=== PATIENT | female | born 1985 | race Caucasian/White ===

== ENCOUNTER → 2016-10-13 | Outpatient (REF) | payer BC ==
[2016-10-13 17:15] LABS: VITAMIN B12 LEVEL 581 PG/ML (247-911)
[2016-10-13 17:19] LABS: ALBUMIN 4.3 GM/DL (3.2-5.2); ALBUMIN/GLOBULIN RATIO 1.34 (1.00-1.93); ALKALINE PHOSPHATASE 55 U/L (45-117); ALT/SGPT 20 U/L (12-78); ANION GAP 7 MEQ/L (8-16); AST/SGOT 11 U/L (15-37); BILIRUBIN,TOTAL 0.5 MG/DL (0.2-1.0); BLOOD UREA NITROGEN 6 MG/DL (7-18); CALCIUM LEVEL 9.2 MG/DL (8.5-10.1); CARBON DIOXIDE LEVEL 29 MEQ/L (21-32); CHLORIDE LEVEL 105 MEQ/L (98-107); CHOLESTEROL LEVEL 187 MG/DL (<200); CREATININE FOR GFR 0.76 MG/DL (0.55-1.02); FERRITIN 21 NG/ML (8-252); FREE T4 1.13 NG/DL (0.76-1.46); GLOMERULAR FILTRATION RATE > 60.0 (>60); GLUCOSE, FASTING 86 MG/DL (70-105); POTASSIUM SERUM 4.9 MEQ/L (3.5-5.1); SODIUM LEVEL 141 MEQ/L (136-145); TOTAL PROTEIN 7.5 GM/DL (6.4-8.2); TRIGLYCERIDES LEVEL 71 MG/DL (<150)
[2016-10-13 17:51] LABS: MEAN CORPUSCULAR HEMOGLOBIN 31.8 pg (27.0-33.0); MEAN CORPUSCULAR HGB CONC 34.1 g/dl (32.0-36.5); MEAN CORPUSCULAR VOLUME 93.2 fl (80.0-96.0); RED CELL DISTRIBUTION WIDTH 11.9 % (11.5-14.5); WHITE BLOOD COUNT 3.4 K/mm3 (4.0-10.0)
== END ==
LOC: M SFHCCLAY 11:03
PROVIDERS: ATTEND Family Medicine
DX: R53.83 Other fatigue (principal); Z00.00 Encounter for general adult medical examination without abnormal findings

== ENCOUNTER → 2017-09-27 | Outpatient (REF) | payer BC ==
[2017-09-27 17:58] LABS: BASO % 0.7 % (0.0-1.0); EOS # 0.2 10^3/uL (0.0-0.50); EOS % 3.3 % (0.0-3.0); HEMATOCRIT 39.1 % (36.0-47.0); HEMOGLOBIN 13.1 g/dl (12.0-15.5); LYMPH # 1.4 10^3/uL (1.5-4.5); LYMPH % 30.8 % (24.0-44.0); MEAN CORPUSCULAR HEMOGLOBIN 30.3 pg (27.0-33.0); MEAN CORPUSCULAR HGB CONC 33.5 g/dl (32.0-36.5); MEAN CORPUSCULAR VOLUME 90.5 fl (80.0-96.0); MONO # 0.7 10^3/uL (0.0-0.8); MONO % 14.8 % (0.0-5.0); NEUTROPHILS # 2.3 10^3/uL (1.8-7.7); NEUTROPHILS % 50.4 % (36.0-66.0); PLATELET COUNT, AUTOMATED 206 10^3/uL (150-450); RED BLOOD COUNT 4.32 10^6/uL (4.00-5.40); RED CELL DISTRIBUTION WIDTH 12.2 % (11.5-14.5); WHITE BLOOD COUNT 4.5 10^3/uL (4.0-10.0)
[2017-09-27 17:59] LABS: THYROID PEROXIDASE ANTIBODY < 28.0 U/ML (<60.0)
[2017-09-27 18:00] LABS: FOLATE 14.4 NG/ML (>5.4); VITAMIN B12 LEVEL 630 PG/ML (247-911)
[2017-09-27 18:01] LABS: ALBUMIN 4.5 GM/DL (3.2-5.2); ALBUMIN/GLOBULIN RATIO 1.25 (1.00-1.93); ALKALINE PHOSPHATASE 58 U/L (45-117); ALT/SGPT 23 U/L (12-78); ANION GAP 7 MEQ/L (8-16); AST/SGOT 15 U/L (7-37); BILIRUBIN,TOTAL 0.4 MG/DL (0.2-1.0); BLOOD UREA NITROGEN 7 MG/DL (7-18); CARBON DIOXIDE LEVEL 28 MEQ/L (21-32); CHLORIDE LEVEL 105 MEQ/L (98-107); CREATININE FOR GFR 0.75 MG/DL (0.55-1.30); FERRITIN 31 NG/ML (8-252); FREE T4 0.99 NG/DL (0.76-1.46); GLOMERULAR FILTRATION RATE > 60.0 (>60); GLUCOSE, FASTING 93 MG/DL (70-100); IRON (FE) 75 UG/DL (50-170); SODIUM LEVEL 140 MEQ/L (136-145); TOTAL PROTEIN 8.1 GM/DL (6.4-8.2)
[2017-10-01 00:06] LABS: MOO5-IGE CANDIDA albican <0.10 kU/L (Class 0)
[2017-10-01 00:06] LABS: THYROID BINDING GLOBULIN 27 ug/mL (13-39)
== END ==
LOC: M SFHCCLAY 12:25
DX: B37.9 Candidiasis, unspecified (principal); R53.82 Chronic fatigue, unspecified; I95.1 Orthostatic hypotension; R00.0 Tachycardia, unspecified; J02.9 Acute pharyngitis, unspecified

== ENCOUNTER 2021-08-10 18:58 | Emergency (ER) | payer BC, MEDICAID ==
[~2021-08-10] VITALS: Ht 167.6 cm; Wt 68.2 kg
[2021-08-10] MEDS ORDERED: BISO5TAB14 (20:58)
[2021-08-10] MEDS ORDERED: LO LTAB (20:58)
[2021-08-10] MEDS ORDERED: SYNT25TA (20:58)
[2021-08-10] MEDS ORDERED: CETI-24 (20:58)
[2021-08-10] MEDS ORDERED: ALBU8.5H (20:58)
[2021-08-10] MEDS ORDERED: CYAN1000VL (20:58)
[2021-08-10] MEDS ORDERED: HAIL1TAB (20:58)
[2021-08-10] MEDS ORDERED: NS 1,000 ML IV ONE (21:25)
[2021-08-10] MEDS ORDERED: MECLIZINE 25 MG TABLET PO ONE (21:25)
[2021-08-10 21:52] LABS: BASO % 0.4 % (0.0-1.0); EOS # 0.1 10^3/uL (0.0-0.5); EOS % 1.3 % (0.0-3.0); HEMATOCRIT 37.7 % (36.0-47.0); HEMOGLOBIN 12.6 g/dl (12.0-15.5); LYMPH # 1.6 10^3/uL (1.5-5.0); LYMPH % 29.7 % (24.0-44.0); MEAN CORPUSCULAR HEMOGLOBIN 31.2 pg (27.0-33.0); MEAN CORPUSCULAR HGB CONC 33.4 g/dl (32.0-36.5); MEAN CORPUSCULAR VOLUME 93.3 fl (80.0-96.0); MONO # 0.6 10^3/uL (0.0-0.8); MONO % 10.2 % (2.0-8.0); NEUTROPHILS # 3.1 10^3/uL (1.5-8.5); PLATELET COUNT, AUTOMATED 236 10^3/uL (150-450); RED BLOOD COUNT 4.04 10^6/uL (4.00-5.40); WHITE BLOOD COUNT 5.4 10^3/uL (4.0-10.0)
[2021-08-10 22:22] LABS: CK-MB VALUE MASS < 1.0 NG/ML (<3.6); CPK CREATINE PHOSPHOKINASE 31 U/L (26-192); MB/CK RELATIVE INDEX 3.23 (< OR =4)
[2021-08-10 22:27] LABS: MAGNESIUM LEVEL 2.1 MG/DL (1.8-2.4); THYROID STIMULATING HORMONE 2.39 uIU/ML (0.358-3.740)
[2021-08-10] MEDS ORDERED: diazePAM 5MG TABLET PO ONE (23:30)
[2021-08-10] MEDS ORDERED: ONDANSETRON 4MG/2ML VIAL IV ONE (23:30)
[2021-08-10] MEDS ORDERED: MECL1TAB31 PO (23:59)
[2021-08-10] MEDS ORDERED: ONDA4TAB6 PO (23:59)
[2021-08-11] MEDS ORDERED: ONDANSETRON 4MG ORAL DISINTEGRATING TAB PO ONE
[2021-08-11 00:34] VITALS: BP 129/68
== END 2021-08-11 00:36 | disposition home or self-care (01) ==
LOC: M ED 18:58
DX: R42 Dizziness and giddiness (principal); E05.90 Thyrotoxicosis, unspecified without thyrotoxic crisis or storm; Z87.19 Personal history of other diseases of the digestive system; Z79.899 Other long term (current) drug therapy; Z79.3 Long term (current) use of hormonal contraceptives

== ENCOUNTER 2021-09-30 12:54 | Outpatient (CLI) | payer MEDICARE ==
[~2021-09-30] VITALS: Ht 167.6 cm; Wt 68.1 kg
[~2021-09-30 12:54] MED LIST: ALBU8.5H; ALBUTEROL SULFATE 2.5 MG/0.5 ML INH NEB SOLN INH PRN; BISO5TAB14; CETI-24; CYAN1000VL; EPINEPHrine INJ 1 MG/ML 1ML AMP IM PRN; HAIL1TAB; LO LTAB; MECL1TAB31 PO; ONDA4TAB6 PO; SYNT25TA; diphenhydrAMINE 50MG/ML VIAL (J1200) IV PRN; methylPREDNISolone 125MG 2ML VIAL IV PRN
[2021-09-30 13:05] VITALS: BP 127/64
[2021-09-30] MEDS ORDERED: ACETAMINOPHEN TAB 650MG DOSE (2X325MG) PO ONE ×2 (13:35→15:30)
[2021-09-30] MEDS ORDERED: diphenhydrAMINE 25MG CAP PO ONE ×2 (13:35→15:30)
[2021-09-30] MEDS ORDERED: VEDOLIZUMAB 300 MG in NS 250 ML IV ONE (15:30)
[2021-09-30] MEDS ORDERED: NS 1,000 ML IV SCH ×2 (15:30)
[2021-09-30] MEDS ORDERED: CETIRIZINE (ZyrTEC) 10 MG TAB PO ONE (15:30)
[2021-09-30 16:10] VITALS: BP 115/69
== END 2021-09-30 16:15 | disposition home or self-care (01) ==
LOC: M INFU 12:54
DX: K51.90 Ulcerative colitis, unspecified, without complications (principal)
CPT/HCPCS: 96361; 96365; J3380

== ENCOUNTER 2021-10-18 10:11 | Emergency (ER) | payer MEDICARE ==
[~2021-10-18] VITALS: Ht 167.6 cm; Wt 63.6 kg
[~2021-10-18 10:11] MED LIST changes: -ALBUTEROL SULFATE 2.5 MG/0.5 ML INH NEB SOLN INH PRN; -EPINEPHrine INJ 1 MG/ML 1ML AMP IM PRN; -diphenhydrAMINE 50MG/ML VIAL (J1200) IV PRN; -methylPREDNISolone 125MG 2ML VIAL IV PRN
[2021-10-18] MEDS ORDERED: ONDANSETRON 4MG 2ML VIAL IV ONE (12:45)
[2021-10-18] MEDS ORDERED: NS 1,000 ML IV ONE (12:45)
[2021-10-18 13:07] LABS: INR 1.02; PROTHROMBIN TIME 13.9 SECONDS (12.7-14.5)
[2021-10-18 13:08] LABS: PARTIAL THROMBOPLASTIN TIME 27.7 SECONDS (25.9-37.0)
[2021-10-18 13:11] LABS: D-DIMER QUANT 431.66 ng/ml (<500)
[2021-10-18 13:15] LABS: BASO % 0.3 % (0.0-1.0); HEMATOCRIT 40.5 % (36.0-47.0); LYMPH # 0.5 10^3/uL (1.5-5.0); LYMPH % 11.6 % (24.0-44.0); MEAN CORPUSCULAR HEMOGLOBIN 30.4 pg (27.0-33.0); MEAN CORPUSCULAR HGB CONC 32.1 g/dl (32.0-36.5); MEAN CORPUSCULAR VOLUME 94.6 fl (80.0-96.0); MONO # 0.4 10^3/uL (0.0-0.8); MONO % 9.1 % (2.0-8.0); NEUTROPHILS # 3.1 10^3/uL (1.5-8.5); NEUTROPHILS % 78.7 % (36.0-66.0); PLATELET COUNT, AUTOMATED 191 10^3/uL (150-450); RED BLOOD COUNT 4.28 10^6/uL (4.00-5.40)
[2021-10-18 13:37] LABS: CK-MB VALUE MASS < 1.0 NG/ML (<3.6); CPK CREATINE PHOSPHOKINASE 28 U/L (26-192); MB/CK RELATIVE INDEX 3.57 (< OR =4)
[2021-10-18 14:05] LABS: BLOOD UREA NITROGEN 9 MG/DL (7-18); C REACTIVE PROTEIN QUANTITATIV 6.55 MG/DL (0.00-0.30); CARBON DIOXIDE LEVEL 25 MEQ/L (21-32); CHLORIDE LEVEL 106 MEQ/L (98-107); CREATININE FOR GFR 0.76 MG/DL (0.55-1.30); ETHYL ALCOHOL (ETHANOL) < 0.003 % (0.000-0.010); FERRITIN 67 NG/ML (8-252); FREE T4 1.42 NG/DL (0.76-1.46); GLOMERULAR FILTRATION RATE > 60.0 (>60); GLUCOSE, FASTING 100 MG/DL (70-100); LDH LACTATE DEHYDROGENASE 150 U/L (84-246); MAGNESIUM LEVEL 2.4 MG/DL (1.8-2.4); POTASSIUM SERUM 4.4 MEQ/L (3.5-5.1); SODIUM LEVEL 139 MEQ/L (136-145); THYROID STIMULATING HORMONE 0.582 uIU/ML (0.358-3.740)
[2021-10-18 14:19] LABS: HCG, SERUM QUALITATIVE NEGATIVE (NEGATIVE)
[2021-10-18] MEDS ORDERED: ONDA4TAB6 PO (15:29)
[2021-10-18 16:00] VITALS: BP 117/64
== END 2021-10-18 16:18 | disposition home or self-care (01) ==
LOC: M ED 10:11
DX: U07.1 COVID-19 (principal); R55 Syncope and collapse; I10 Essential (primary) hypertension
CPT/HCPCS: 71045; 80048; 82077; 82550; 82553; 82728; 83605; 83615; 83735; 84145; 84439; 84443; 84484; 84703; 85025; 85379; 85384; 85610; 85730; 86140; 87040; 93005; 93041; 94760; 96361; 96374; 99285; J2405

== ENCOUNTER 2021-11-25 15:20 | Outpatient (CLI) | payer MEDICARE ==
[~2021-11-25] VITALS: Ht 167.6 cm; Wt 66.7 kg
[~2021-11-25 15:20] MED LIST changes: +ALBUTEROL SULFATE 2.5 MG/0.5 ML INH NEB SOLN INH PRN; +EPINEPHrine INJ 1 MG/ML 1ML AMP IM PRN; +diphenhydrAMINE 50MG/ML VIAL (J1200) IV PRN; +methylPREDNISolone 125MG 2ML VIAL IV PRN
[2021-11-25] MEDS ORDERED: ACETAMINOPHEN TAB 650MG DOSE (2X325MG) PO ONE (15:30)
[2021-11-25] MEDS ORDERED: VEDOLIZUMAB 300 MG in NS 250 ML IV ONE (15:30)
[2021-11-25] MEDS ORDERED: diphenhydrAMINE 25MG CAP PO ONE (15:30)
[2021-11-25] MEDS ORDERED: NS 1,000 ML IV SCH ×2 (15:30)
[2021-11-25] MEDS ORDERED: CETIRIZINE (ZyrTEC) 10 MG TAB PO ONE (15:30)
[2021-11-25 15:40] VITALS: BP 128/64
[2021-11-25 15:57] VITALS: BP 128/64
[2021-11-25 17:35] VITALS: BP 133/70
== END 2021-11-25 17:35 | disposition home or self-care (01) ==
LOC: M INFU 15:20
PROVIDERS: ATTEND Internal Medicine Gastroenterology
DX: K51.90 Ulcerative colitis, unspecified, without complications (principal)
CPT/HCPCS: 96365; 96366; J3380

== ENCOUNTER 2022-09-08 14:07 | Outpatient (CLI) | payer MEDICARE, OTHER ==
[~2022-09-08] VITALS: Ht 167.6 cm; Wt 75.0 kg
[~2022-09-08 14:07] MED LIST changes: -ALBUTEROL SULFATE 2.5 MG/0.5 ML INH NEB SOLN INH PRN; +ALBUTEROL SULFATE 2.5MG/0.5ML INH NEB SOLN INH PRN; -diphenhydrAMINE 50MG/ML VIAL (J1200) IV PRN; +diphenhydrAMINE 50MG/ML VIAL IV PRN
[2022-09-08 14:15] VITALS: BP 120/61; O2SAT 97
[2022-09-08] MEDS ORDERED: NS 1,000 ML IV SCH (14:30)
[2022-09-08] MEDS ORDERED: VEDOLIZUMAB 300 MG in NS 250 ML IV ONE (14:30)
[2022-09-08] MEDS ORDERED: LORATADINE 10 MG TAB PO ONE (14:30)
[2022-09-08] MEDS ORDERED: diphenhydrAMINE 25MG CAP PO ONE (14:30)
[2022-09-08] MEDS ORDERED: ACETAMINOPHEN TAB 650MG DOSE (2X325MG) PO ONE (14:30)
[2022-09-08 16:34] VITALS: BP 119/74; O2SAT 100
== END 2022-09-08 16:30 | disposition home or self-care (01) ==
LOC: M INFU 14:07
PROVIDERS: ATTEND Internal Medicine Gastroenterology
DX: K51.90 Ulcerative colitis, unspecified, without complications (principal)
CPT/HCPCS: 96365; J3380

== ENCOUNTER 2022-11-03 11:00 | Outpatient (CLI) | payer MEDICARE ==
[~2022-11-03] VITALS: Ht 167.6 cm; Wt 75.0 kg
[2022-11-03 11:14] VITALS: BP 120/70; TEMP 97.6; O2SAT 99
[2022-11-03] MEDS ORDERED: ACETAMINOPHEN 650MG PO PRIOR TO INFUSION PO ONE (11:40)
[2022-11-03] MEDS ORDERED: NS 1,000 ML IV SCH (11:40)
[2022-11-03] MEDS ORDERED: LORATADINE 10 MG TAB PO ONE (11:40)
[2022-11-03] MEDS ORDERED: diphenhydrAMINE 25MG PO PRIOR TO INFUSION PO ONE (11:40)
[2022-11-03] MEDS ORDERED: VEDOLIZUMAB 300 MG in NS 250 ML IV ONE (11:45)
[2022-11-03] MEDS ORDERED: CETIRIZINE (ZyrTEC) 10 MG TAB PO ONE (11:50)
[2022-11-03 13:05] VITALS: BP 133/68; O2SAT 100
== END 2022-11-03 13:10 ==
LOC: M INFU 11:00
PROVIDERS: ATTEND Internal Medicine Gastroenterology
DX: K51.90 Ulcerative colitis, unspecified, without complications (principal)
CPT/HCPCS: 96365; J3380

== ENCOUNTER → 2023-09-28 | Outpatient (CLI) | payer MEDICARE, OTHER ==
[~2023-09-28] VITALS: Ht 167.6 cm; Wt 75.8 kg
[~2023-09-28] MED LIST changes: +MECL-209 PO; -MECL1TAB31 PO; +NS 1,000 ML IV SCH; +ONDA-282 PO; -ONDA4TAB6 PO
[2023-09-28 15:40] VITALS: BP 133/65; O2SAT 97
[2023-09-28] MEDS: NS 1,000 ML IV SCH (15:51)
[2023-09-28] MEDS: ACETAMINOPHEN TAB 650MG DOSE (2X325MG) PO ONE (15:51)
[2023-09-28] MEDS: VEDOLIZUMAB 300 MG in NS 250 ML IV ONE (16:12)
[2023-09-28] MEDS: diphenhydrAMINE 25MG CAP PO ONE (16:16)
[2023-09-28 17:50] VITALS: BP 128/61; O2SAT 100
== END ==
LOC: M INFU 14:52
PROVIDERS: ATTEND Internal Medicine Gastroenterology
DX: K51.90 Ulcerative colitis, unspecified, without complications (principal)
CPT/HCPCS: 96365; J3380

== ENCOUNTER → 2024-10-29 | Outpatient (CLI) | payer MEDICARE, OTHER ==
[~2024-10-29] VITALS: Ht 167.6 cm; Wt 77.3 kg
[~2024-10-29] MED LIST changes: +ALBUTEROL SULFATE 2.5 MG/0.5 ML INH CONCENTRATE NEB SOLN INH PRN; -ALBUTEROL SULFATE 2.5MG/0.5ML INH NEB SOLN INH PRN; -NS 1,000 ML IV SCH; +diphenhydrAMINE 50 MG/ML VIAL IV PRN; -diphenhydrAMINE 50MG/ML VIAL IV PRN; -methylPREDNISolone 125MG 2ML VIAL IV PRN
[2024-10-29 10:00] VITALS: BP 119/78; O2SAT 99
[2024-10-29] MEDS: CETIRIZINE 10 MG TAB PO ONE (10:19)
[2024-10-29] MEDS: ACETAMINOPHEN 650 MG PO ONE (10:19)
[2024-10-29] MEDS: NS (Normal Saline) 0.9% 1,000 ML IV SCH (10:20)
[2024-10-29] MEDS: VEDOLIZUMAB 300 MG in NS 250 ML IV ONE (10:55)
[2024-10-29 12:35] VITALS: BP 132/80; O2SAT 98
== END ==
LOC: M INFU 17:57
PROVIDERS: ATTEND Internal Medicine Gastroenterology
DX: K51.811 Other ulcerative colitis with rectal bleeding (principal)
CPT/HCPCS: 96413; J3380